=== PATIENT | female | born 1995 | race African-American/Black ===

== ENCOUNTER 2020-12-31 12:48 | Emergency (ER) | payer OTHER ==
[~2020-12-31] VITALS: Ht 152.4 cm; Wt 52.6 kg
[2020-12-31] MEDS ORDERED: CASIRIVIMAB/IMDEVIMAB 10 ML in SODIUM CHLORIDE 0.9% 100 ML IV ONE (15:30)
[2020-12-31 16:22] VITALS: BP 108/68
== END 2020-12-31 16:26 | disposition home or self-care (01) ==
LOC: ER 13:31
DX: O98.512 Other viral diseases complicating pregnancy, second trimester (principal); U07.1 COVID-19; Z3A.22 22 weeks gestation of pregnancy
CPT/HCPCS: 99283; J7050; U0002